=== PATIENT | male | born 1960 ===

== ENCOUNTER 2018-04-12 05:15 | Day surgery (SDC) | payer OTHER ==
[~2018-04-12 05:15] MED LIST: DOXEPIN HCL50 MG PO; GEODON40 MG PO
[2018-04-12] MEDS ORDERED: PERCOCET 5-3251 EACH PO (08:29)
[2018-04-12] MEDS ORDERED: RECTICARE30 GM TOP (08:30)
== END 2018-04-12 13:50 | disposition home or self-care (01) ==
LOC: CIR.AMB 05:15 → ADM 04-19 11:30
DX: D12.9 Benign neoplasm of anus and anal canal (principal)